=== PATIENT | male | born 1945 | race Caucasian/White ===

== ENCOUNTER → 2020-10-23 17:33 | Outpatient (CLI) | payer MEDICARE, OTHER, SELFPAY ==
--- NOTE | 2020-10-23 17:37 | DI.MRI.S_ITS ---
PROCEDURE: MR HIP LT WO CON INDICATIONS: UNILATERAL PRIMARY OSTEOARTHRITIS, LEFT HIP TECHNIQUE: Noncontrast coronal T1 spin echo and STIR through the bony pelvis. Coronal and axial T2 fast spin echo with fat saturation, sagittal T1 spin echo, and oblique axial T2 fast spin echo with fat saturation through the hip. COMPARISON: None. FINDINGS: Bones and joints: No fracture identified. Sacroiliac joints are unremarkable in signal intensity. There is lower lumbar spondylosis and facet arthropathy. No pathologic hip joint effusion. No evidence of osteonecrosis. Tendons and ligaments: Gluteus minimus appears intact. There is thickening and partial tear of the gluteus medius insertion. Proximal iliotibial band intact. Iliopsoas tendon intact. Hamstring origin demonstrates marked thickening and intrasubstance T2 hyperintensity as well as adjacent edema in keeping with age-indeterminate tendinopathy Mild thickening and amorphous intrasubstance signal change involving the straight head of the rectus femoris, likely chronic. Ligamentum teres appears intact where visualized. Labrum: Labrum demonstrates age-appropriate fraying. No intrasubstance fluid signal intensity. The alpha angle of the femur is within normal limits at less than 55 degrees. There is mild diffuse partial-thickness chondral loss, age appropriate. Soft tissues: Visualized muscles demonstrate normal bulk and internal signal. Quadratus femoris muscle normal. Proximal sciatic neurovascular bundle appears normal adjacent to the hamstring tendons. No free pelvic fluid. Bladder normal. Genitourinary structures and bowel loops appear normal where visualized. IMPRESSION: Hamstring origin tendinopathy and partial tear, technically age unknown. Please correlate clinically Insertional gluteus medius tendinopathy and partial tear. Mild probably chronic tendinopathy involving the straight head of the rectus femoris muscle. Dictated by: Joe Feldman M.D. on 10/26/2020 at 8:39 Approved by: Joe Feldman M.D. on 10/26/2020 at 9:00
== END ==
PROVIDERS: Referring Provider Orthopaedic Surgery; Visit Provider Orthopaedic Surgery
DX: M16.12 Unilateral primary osteoarthritis, left hip (principal); S76.812A Strain of other specified muscles, fascia and tendons at thigh level, left thigh, initial encounter
CPT/HCPCS: 73721

== ENCOUNTER 2021-02-01 16:48 | Emergency (ER) | payer MEDICARE, OTHER, SELFPAY ==
[2021-02-01 16:53] VITALS: BP 155/84; PULSE 80; RESP 16; TEMP 36.7; O2SAT 97; BMI 23.3
--- NOTE | 2021-02-01 17:03 | DI.RAD.S_ITS ---
PROCEDURE: XR CHEST 1V INDICATIONS: chest pain TECHNIQUE: One view of the chest was acquired. COMPARISON: [facility], CR, XR RIBS RIGHT, 01/28/2021, 9:51. FINDINGS: Surgical changes and devices: None. Lungs and pleura: Lungs are clear. No pleural effusions or pneumothorax. Mediastinum: Mediastinal contours appear normal. Heart size is normal. Bones and chest wall: No suspicious bony lesions. Age-appropriate bony degenerative changes are seen. Overlying soft tissues appear unremarkable. IMPRESSION: Portable chest study within normal limits for age. Dictated by: Bharat Bains M.D. on 02/01/2021 at 16:27 Approved by: Bharat Bains M.D. on 02/01/2021 at 16:27
--- NOTE | 2021-02-01 17:36 | ED.ARRPALP ---
HPI - Arrhythmia/Palpitations General Chief Complaint: Arrhythmia/Palpitations Stated Complaint: Afib, 4 Hours Time Seen by Provider: 02/01/21 17:03 History of Present Illness HPI narrative: Patient is a 75-year-old male with history of paroxysmal atrial fibrillation on metoprolol and Eliquis in the. He says with the heat and most recently his dog needing an amputation he has had a few episodes of atrial fibrillation last week. He had 1 2 days ago which he took an extra dose of metoprolol and got out of it he thinks are at least it slowed down however today he felt it again. He took 100 mg of metoprolol tartrate prior to his arrival. However it is 2 years ago. Initially in atrial fibrillation with a rate of 102 however he spontaneously converted to a normal sinus rhythm in with rate 79. He denies any dizziness or lightheadedness. He is followed closely at the [facility]. Related Data Previous Rx's Medication Instructions Recorded metoprolol succinate 25 mg 25 mg PO DAILY #14 tab 02/01/21 tablet,extended release 24 hr Allergies Allergy/AdvReac Type Severity Reaction Status Date / Time Penicillins Allergy Intermediate Hives Verified 02/01/21 17:41 Review of Systems Review of Systems Narrative: GENERAL: Denies chills, fatigue, malaise, fever, sweats, travel HEENT: Denies sinus pain, ear pain, sore throat, difficulty swallowing, neck pain RESPIRATORY: Denies dyspnea, cough, wheezing, hemoptysis, sputum. CARDIOVASCULAR: See HPI GASTROINTESTINAL: Denies nausea, vomiting, abdominal pain, diarrhea, constipation, melena. : Denies dysuria, frequency, incontinence, hematuria, urinary retention, flank pain. MUSCULOSKELETAL: Denies weakness, joint pain, or bony pain SKIN: No rash, no erythema, no pruritus NEUROLOGIC: Denies weakness, dizziness, headache, numbness, change in speech, confusion PSYCHIATRIC: No concerning psychosocial issues. 12 point review of systems is negative except for those stated above and HPI Exam Initial Vital Signs Initial Vital Signs: Vital Signs Temperature 98.1 F 02/01/21 16:53 Pulse Rate 80 02/01/21 16:53 Respiratory Rate 16 02/01/21 16:53 Blood Pressure 155/84 H 02/01/21 16:53 Pulse Oximetry 97 02/01/21 16:53 GENERAL: Alert well-appearing 75-year-old male HEENT: Head atraumatic,EOMI, pupils reactive, face symmetric, moist mucous membranes CARDIOVASCULAR: Regular rate and rhythm without murmurs, rubs or gallops. RESPIRATORY: Breath sounds equal bilaterally, no wheezes rales or rhonchi. ABDOMEN: Soft, nontender. Normoactive bowel sounds all 4 quadrants. No guarding or rebound. EXTREMITIES: Normal range of motion, no clubbing or edema. Neurovascularly intact NEUROLOGICAL: Alert and oriented x4.Normal gait and speech. SKIN: Warm, dry, no laceration, no petechiae, no rashes or lesions. Course Orders Ordered: ED Orders 02/01/21 17:03 XR chest 1V Stat EKG-12 Lead Stat 02/01/21 17:35 BNP [NT-proBNP (BNP-Adult 18+)] Stat Complete Blood Count AUTO DIFF Stat Comprehensive Metabolic Panel Stat Lipase Stat Magnesium Stat PTT [Partial Thromboplastin Time] Stat Prothrombin Time INR Stat Troponin & CK Cardiac Panel Stat Discontinued Medications Diltiazem HCl (Diltiazem 5 Mg/Ml Sdv) 10 mg IV NOW ONE Stop: 02/01/21 17:06 Last Admin: 02/01/21 17:58 Dose: Not Given Documented by: MATTI Vital Signs Vital signs: Vital Signs - 8 hr 02/01/21 16:53 Temperature 98.1 F Pulse Rate 80 Respiratory Rate 16 Blood Pressure 155/84 H Pulse Oximetry 97 MDM - Arrhythmia/Palpitations Lab Data Result diagrams: 02/01/21 17:35 02/01/21 17:35 Labs: Lab Results 02/01/21 02/01/21 02/01/21 Range/Units 17:35 17:35 17:35 WBC 9.7 (4.5-11.0) X10^3/uL RBC 4.60 (4.5-5.9) X10^6/uL Hgb 13.6 (13.5-17.5) g/dL Hct 40.0 L (41-53) % MCV 86.8 (80-100) fL MCH 29.6 (26-34) PG MCHC 34.1 (30-36) % RDW 13.2 (11.6-14.8) % Plt Count 308 (150-400) X10^3/uL Neut % (Auto) 60.0 (50-75) % Lymph % (Auto) 27.2 (25-40) % [place] % (Auto) 9.6 (3-14) % Eos % (Auto) 2.2 (2-4) % Baso % (Auto) 1.0 (0-2) % Neut # (Auto) 5800 (6378-9008) /uL Lymph # (Auto) 2600 (6201-2607) /uL [place] # (Auto) 900 (0-900) /uL Eos # (Auto) 200 (0-450) /uL Baso # (Auto) 100 (0-100) /uL PT 11.7 (10.1-12.7) SECONDS INR 1.0 (0.9-1.3) APTT 33 (26.4-36.2) SECONDS Sodium 141 (137-145) mmol/L Potassium 4.3 (3.4-5.1) mmol/L Chloride 105 (98-107) mmol/L Carbon Dioxide 28 (22-32) mmol/L BUN 13 (9-20) mg/dL Creatinine 0.85 (0.66-1.25) mg/dL Estimated GFR > 60.0 (>60) mL/min BUN/Creatinine Ratio 15.3 (6-22) Glucose 232 H (80-110) mg/dL Calcium 9.7 (8.4-10.2) mg/dL Magnesium 2.2 (1.6-2.3) mg/dL Total Bilirubin 0.4 (0.2-1.3) mg/dL AST 24 (17-59) IU/L ALT 22 (<50) IU/L Alkaline Phosphatase 83 (38-126) U/L Total Creatine Kinase 50 L (55-170) U/L CK-MB (CK-2) TNP CK-MB (CK-2) Rel Index TNP Troponin I < 0.012 (0.01-0.034) ng/mL NT-Pro-B Natriuret Pep 100 (<125) pg/mL Total Protein 7.9 (6.3-8.2) g/dL Albumin 4.4 (3.5-5.0) g/dL Globulin 3.5 (1.7-4.1) g/dL Albumin/Globulin Ratio 1.3 (1.0-2.8) Lipase 131 (23-300) U/L Imaging Data Chest x-ray: Radiologist's Impresson: PROCEDURE: XR CHEST 1V INDICATIONS: chest pain TECHNIQUE: One view of the chest was acquired. COMPARISON: [facility], CR, XR RIBS RIGHT, 01/28/2021, 9:51. FINDINGS: Surgical changes and devices: None. Lungs and pleura: Lungs are clear. No pleural effusions or pneumothorax. Mediastinum: Mediastinal contours appear normal. Heart size is normal. Bones and chest wall: No suspicious bony lesions. Age-appropriate bony degenerative changes are seen. Overlying soft tissues appear unremarkable. IMPRESSION: Portable chest study within normal limits for age. Dictated by: Bharat Bains M.D. on 02/01/2021 at 16:27 Approved by: Bharat Bains M.D. on 02/01/2021 at 16:27 ECG Data Interpretation: EKG 1. Atrial fibrillation rate [address] changes EKG 2. Normal sinus rhythm no ST changes or T-wave inversions MDM Narrative Medical decision making narrative: Patient spontaneously converted he was brought back. He remains in normal sinus rhythm with heart rate in the 70s and blood pressure in the 120s. He has had increased episodes of AFib over the last 1 week. At this time I recommend increasing his metoprolol from 12.5 mg at night to 25 mg at night in following up with the CO. he agrees with this plan. He understands to watch blood pressure and heart rate and return to the emergency department as needed. He is overall feeling significantly better. Discharge Plan Departure Patient Disposition: Home Clinical Impression: Atrial fibrillation Qualifiers: Atrial fibrillation type: paroxysmal Qualified Code(s): I48.0 - Paroxysmal atrial fibrillation Instructions: DI for Atrial Fibrillation Activity Restrictions/Additional Instructions: *You have been diagnosed with atrial fibrillation paroxysmal *What to do: At this time please follow-up with the [facility] and see the pathology lab technician. For now let us increase in the metoprolol to 25 mg at nighttime to see how you do. Please continue to take Eliquis as prescribed *Continue to take medications as directed 25 mg metoprolol succinate at night *Follow up with your primary care provider in 2-3 days *Return to ER if you should have increasing chest pain palpitations dizziness lightheadedness or persistent or more frequent episodes of atrial fibrillation or any new, worsening or concerning symptoms Prescriptions: New metoprolol succinate 25 mg tablet extended release 24 hr 25 mg PO DAILY Qty: 14 RF: 0
[2021-02-01 17:43] LABS: Add Manual Diff / Slide Review NO; Basophils Absolute Auto 100 /uL (0-100); Eosinophils Absolute Auto 200 /uL (0-450); Eosinophils Percent Auto 2.2 % (2-4); Hemoglobin 13.6 g/dL (13.5-17.5); Lymphocytes Absolute Auto 2600 /uL (1100-4500); Lymphocytes Percent Auto 27.2 % (25-40); Mean Corpuscular HGB Conc 34.1 % (30-36); Mean Corpuscular Hemoglobin 29.6 PG (26-34); Mean Corpuscular Volume 86.8 fL (80-100); Monocytes Absolute Auto 900 /uL (0-900); Monocytes Percent Auto 9.6 % (3-14); Neutrophils Absolute Auto 5800 /uL (1500-7000); Platelet Count 308 X10^3/uL (150-400); Red Cell Distribution Width 13.2 % (11.6-14.8); White Blood Cell Count 9.7 X10^3/uL (4.5-11.0)
[2021-02-01 17:48] LABS: Prothrombin Time 11.7 SECONDS (10.1-12.7)
[2021-02-01 17:51] LABS: PTT Partial Thromboplastin Tim 33 SECONDS (26.4-36.2)
[2021-02-01 17:54] LABS: Alanine Aminotransferase 22 IU/L (<50); Albumin 4.4 g/dL (3.5-5.0); Albumin Globulin Ratio 1.3 (1.0-2.8); Alkaline Phosphatase 83 U/L (38-126); Aspartate Aminotransferase 24 IU/L (17-59); BUN Creatinine Ratio 15.3 (6-22); Bilirubin Total 0.4 mg/dL (0.2-1.3); Blood Urea Nitrogen 13 mg/dL (9-20); Calcium 9.7 mg/dL (8.4-10.2); Carbon Dioxide 28 mmol/L (22-32); Chloride 105 mmol/L (98-107); Creatine Kinase 50 U/L (55-170); Estimated Glomerular Filt Rate > 60.0 mL/min (>60); Globulin 3.5 g/dL (1.7-4.1); Glucose 232 mg/dL (80-110); HEMOLYSIS < 15 (0-50); Lipase 131 U/L (23-300); Magnesium 2.2 mg/dL (1.6-2.3); Potassium 4.3 mmol/L (3.4-5.1); Sodium 141 mmol/L (137-145); Total Protein 7.9 g/dL (6.3-8.2)
[2021-02-01 18:07] LABS: NT-proBNP (BNP-Adult 18+) 100 pg/mL (<125); Troponin I < 0.012 ng/mL (0.01-0.034)
[2021-02-01 18:40] VITALS: BP 126/69; PULSE 70; RESP 17; O2SAT 99
== END 2021-02-01 18:41 | disposition home or self-care (01) ==
PROVIDERS: Emergency Provider Emergency Medicine
DX: I48.0 Paroxysmal atrial fibrillation (principal); R07.9 Chest pain, unspecified; Z79.01 Long term (current) use of anticoagulants
CPT/HCPCS: 36415; 71045; 80053; 82550; 83690; 83735; 83880; 84484; 85025; 85610; 85730; 93005; 99282; 99284

== ENCOUNTER 2021-02-11 15:42 | Emergency (ER) | payer MEDICARE, OTHER, SELFPAY ==
[2021-02-11] VITALS (27 sets, daily range): BP systolic 102–175; BP diastolic 57–92; PULSE 68–160; RESP 11–28; TEMP 36.9; O2SAT 89–100; BMI 23.6
--- NOTE | 2021-02-11 15:45 | DI.RAD.S_ITS ---
PROCEDURE: XR CHEST 1V INDICATIONS: chest pain TECHNIQUE: One view of the chest was acquired. COMPARISON: [facility], CR, XR CHEST 1V, 02/01/2021, 17:12. FINDINGS: Surgical changes and devices: None. Lungs and pleura: Lungs are clear. No pleural effusions or pneumothorax. Mediastinum: Mediastinal contours appear normal. Heart size is normal. Bones and chest wall: No suspicious bony lesions. Overlying soft tissues appear unremarkable. IMPRESSION: No acute pulmonary process. Dictated by: Noemi Wisdom M.D. on 02/11/2021 at 16:46 Approved by: Noemi Wisdom M.D. on 02/11/2021 at 16:46
--- NOTE | 2021-02-11 15:56 | ED_ITS ---
HPI - Arrhythmia/Palpitations General Chief Complaint: Arrhythmia/Palpitations Stated Complaint: states in pretty bad A Fib Time Seen by Provider: 02/11/21 15:48 Source: patient Mode of arrival: Ambulatory Limitations: no limitations History of Present Illness HPI narrative: Patient is a 75-year-old male. History of atrial fibrillation. Is on Eliquis. Has taken 2 times a day for least the past 4 weeks if not lo nger. Is also on metoprolol in the evening. Was seen here in the emergency department a couple days ago for AFib with RVR. He converted on his own prior to administration of any medications. He has had AFib in the past and has been to the emergency department however has always either converted on his own or with Cardizem and has never been cardioverted before. He states that his symptoms that he presents with today started this afternoon. He has had quite a bit of stress over the past 24 hours. He states he is having some heaviness in his chest. He did take metoprolol approximately 1 hour prior to arrival in the emergency department Related Data Previous Rx's Medication Instructions Recorded metoprolol succinate 25 mg 25 mg PO DAILY #14 tab 02/01/21 tablet,extended release 24 hr Allergies Allergy/AdvReac Type Severity Reaction Status Date / Time Penicillins Allergy Intermediate Hives Verified 02/11/21 15:51 Review of Systems Constitutional Constitutional: Denies fever(s) and Denies headache(s) ENT Ears, Nose, Mouth, and Throat: Denies headache(s) Cardiovascular Cardiovascular: Reports as per HPI, Reports rapid heart rate, Reports irregular heart rhythm and Denies dyspnea Respiratory Respiratory: Denies dyspnea Gastrointestinal Gastrointestinal: Reports system reviewed and no additional complaints, except as documented Musculoskeletal Musculoskeletal: Reports system reviewed and no additional complaints, except as documented Integumentary/Breasts Skin/Breast: Reports system reviewed and no additional complaints, except as documented Neurologic Neurologic: Denies headache(s) Psychiatric Psychiatric: Reports system reviewed and no additional complaints, except as documented Hematologic/Lymphatic On Anticoagulants: Yes Allergic/Immunologic Allergic/Immunologic: Reports system reviewed and no additional complaints, except as documented Patient History Medical History Atrial fibrillation Social History Smoking Status: Never smoker Smoking Status: Never smoker alcohol intake frequency: holidays/special occasions only Substance Use Type: marijuana Exam Initial Vital Signs Initial Vital Signs: Vital Signs Temperature 98.4 F 02/11/21 15:51 Pulse Rate 160 H 02/11/21 15:51 Respiratory Rate 22 02/11/21 15:51 Blood Pressure 172/79 H 02/11/21 15:51 Pulse Oximetry 99 02/11/21 15:51 Const General: cooperative, healthy appearing and comfortable HENMT Head: normal to inspection and normocephalic Resp Effort & Inspection: normal respiratory effort Auscultation: clear to auscultation bilaterally Cardio Rate: tachycardic Rhythm: abnormal rhythm GI Inspection: normal to inspection Skin General: no rashes or lesions noted Neuro General: patient alert, patient awake, patient oriented x3 and moves all extremities Extrem General: capillary refill normal Psych Appearance: grossly normal and well kempt Procedures Cardioversion Consent Signed: Yes Indication: Atrial fibrillation Stability: Stable Number of attempts (shocks): 3 Joules used: 120 Cardiac rhythm post-cardioversion: AFib Additional Comments: Attempted 3 different shocks 1st on at 120 joules, 2nd 1 at 150 joules, 3rd 1 at 200 joules Procedural Sedation Consent signed: Yes Time out performed: Yes Indication: cardioversion Presedation Evaluation: See HPI ASA Class: II Mallampati Airway Classification: Class II Preparation: clinical research monitor applied, pulse oximeter, capnometry used, supplemental O2 applied, suction/airway equipment at bedside and IV secured Fentanyl: IV Fentanyl dose (mcg): 12 Ketamine dose (mg): 100 Intraservice time/total sedation time (min): 20 ED Sedation Level: Moderate (Concious) Patient Tolerated Procedure: Well and No complications Complications: none Course Orders Ordered: ED Orders 02/11/21 15:45 XR chest 1V Stat Comprehensive Metabolic Panel Stat Lipase Stat Magnesium Stat Troponin & CK Cardiac Panel Stat EKG-12 Lead Stat 02/11/21 16:18 Complete Blood Count AUTO DIFF Stat 02/11/21 16:20 EKG-12 Lead Stat 02/11/21 16:39 RT Consult Eval and Treat Now Sodium Chloride (Normal Saline 0.9%) 1,000 mls @ 125 mls/hr IV CONT SAIMA Last Admin: 02/11/21 17:00 Dose: 125 mls/hr Documented by: Discontinued Medications Diltiazem HCl (Diltiazem 5 Mg/Ml Sdv) 10 mg IV NOW ONE Stop: 02/11/21 15:51 Last Admin: 02/11/21 16:11 Dose: 10 mg Documented by: VILMA Fentanyl (Fentanyl 100 Mcg/2 Ml Inj) 12.5 mcg IV NOW ONE Stop: 02/11/21 16:38 Last Admin: 02/11/21 17:16 Dose: 12.5 mcg Documented by: Propofol (Propofol 200 Mg/20 Ml Vial) 100 mg IV NOW ONE Stop: 02/11/21 16:38 Last Admin: 02/11/21 17:18 Dose: 70 mg Documented by: Vital Signs Vital signs: Vital Signs - 8 hr 02/11/21 15:51 02/11/21 15:56 02/11/21 16:04 Temperature 98.4 F Pulse Rate 160 H 150 H 157 H Respiratory Rate 22 15 14 Blood Pressure 172/79 H Pulse Oximetry 99 98 89 L 02/11/21 16:10 02/11/21 16:11 02/11/21 16:18 Temperature Pulse Rate 156 H 156 H 92 H Respiratory Rate 18 14 Blood Pressure 143/87 H 145/67 H 141/63 H Pulse Oximetry 98 96 02/11/21 16:30 02/11/21 16:45 02/11/21 17:00 Temperature Pulse Rate 92 H 81 122 H Respiratory Rate 22 16 20 Blood Pressure 142/71 H 102/57 L 175/92 H Pulse Oximetry 98 97 97 02/11/21 17:05 02/11/21 17:10 02/11/21 17:15 Temperature Pulse Rate 108 H 110 H 136 H Respiratory Rate 16 13 18 Blood Pressure 149/88 H 147/74 H 160/74 H Pulse Oximetry 97 99 97 02/11/21 17:20 02/11/21 17:25 02/11/21 17:30 Temperature Pulse Rate 80 75 68 Respiratory Rate 20 17 20 Blood Pressure 116/62 136/71 136/65 Pulse Oximetry 99 97 98 02/11/21 17:35 02/11/21 17:40 02/11/21 17:41 Temperature Pulse Rate 76 75 74 Respiratory Rate 20 20 18 Blood Pressure 136/66 142/77 H Pulse Oximetry 98 99 100 02/11/21 17:45 02/11/21 17:50 02/11/21 17:55 Temperature Pulse Rate 74 78 73 Respiratory Rate 28 H 19 15 Blood Pressure 126/73 141/65 H 130/77 Pulse Oximetry 100 99 98 02/11/21 18:00 02/11/21 18:05 02/11/21 18:06 Temperature Pulse Rate 75 75 77 Respiratory Rate 18 19 20 Blood Pressure 119/71 146/71 H Pulse Oximetry 97 97 97 02/11/21 18:10 02/11/21 18:11 02/11/21 18:15 Temperature Pulse Rate 74 75 75 Respiratory Rate 17 11 L 24 Blood Pressure 137/66 Pulse Oximetry 98 98 97 MDM - Arrhythmia/Palpitations Medical Records Attestation: I reviewed the patient's medical records. Lab Data Attestation: I reviewed the patient's lab results. Result diagrams: 02/11/21 16:18 02/11/21 16:18 Labs: Lab Results 02/11/21 02/11/21 Range/Units 16:18 16:18 WBC 11.4 H (4.5-11.0) X10^3/uL RBC 5.07 (4.5-5.9) X10^6/uL Hgb 14.6 (13.5-17.5) g/dL Hct 43.8 (41-53) % MCV 86.4 (80-100) fL MCH 28.8 (26-34) PG MCHC 33.3 (30-36) % RDW 13.0 (11.6-14.8) % Plt Count 378 (150-400) X10^3/uL Neut % (Auto) 64.3 (50-75) % Lymph % (Auto) 26.9 (25-40) % [place] % (Auto) 7.0 (3-14) % Eos % (Auto) 1.2 L (2-4) % Baso % (Auto) 0.6 (0-2) % Neut # (Auto) 7300 H (1661-5325) /uL Lymph # (Auto) 3100 (3854-5099) /uL [place] # (Auto) 800 (0-900) /uL Eos # (Auto) 100 (0-450) /uL Baso # (Auto) 100 (0-100) /uL Sodium 142 (137-145) mmol/L Potassium 4.3 (3.4-5.1) mmol/L Chloride 104 (98-107) mmol/L Carbon Dioxide 27 (22-32) mmol/L BUN 11 (9-20) mg/dL Creatinine 0.79 (0.66-1.25) mg/dL Estimated GFR > 60.0 (>60) mL/min BUN/Creatinine Ratio 13.9 (6-22) Glucose 238 H (80-110) mg/dL Calcium 10.0 (8.4-10.2) mg/dL Magnesium 2.1 (1.6-2.3) mg/dL Total Bilirubin 0.5 (0.2-1.3) mg/dL AST 25 (17-59) IU/L ALT 20 (<50) IU/L Alkaline Phosphatase 121 (38-126) U/L Total Creatine Kinase 79 (55-170) U/L CK-MB (CK-2) TNP CK-MB (CK-2) Rel Index TNP Troponin I < 0.012 (0.01-0.034) ng/mL Total Protein 8.6 H (6.3-8.2) g/dL Albumin 4.7 (3.5-5.0) g/dL Globulin 3.9 (1.7-4.1) g/dL Albumin/Globulin Ratio 1.2 (1.0-2.8) Lipase 203 D (23-300) U/L Imaging Data Chest x-ray: Radiologist's Impresson: [address] [id number] ReportSigned Patient: Guanaco Nelson PMR#: [id number]: 8Acct:[id number]/Sex: 75 / MDate of Service: 02/11/21Loc: EDAccession Number: [id number] Procedure: XR chest 1V Ordering Provider: Brent Mclaughlin D.O. PROCEDURE: XR CHEST 1V INDICATIONS: chest pain TECHNIQUE: One view of the chest was acquired. COMPARISON: [facility], [place], XR CHEST 1V, 02/01/2021, 17:12. FINDINGS: Surgical changes and devices: None. Lungs and pleura: Lungs are clear. No pleural effusions or pneumothorax. Mediastinum: Mediastinal contours appear normal. Heart size is normal. Bones and chest wall: No suspicious bony lesions. Overlying soft tissues appear unremarkable. IMPRESSION: No acute pulmonary process. Dictated by: Noemi Wisdom M.D. on 02/11/2021 at 16:46 Approved by: Noemi Wisdom M.D. on 02/11/2021 at 16:46 ECG Data Attestation: I personally reviewed and interpreted this ECG as follows: Interpretation: Atrial fibrillation Ventricular rate 151 Normal QRS Normal QTC Nonspecific ST T wave changes Post Cardizem EKG atrial flutter Ventricular rate 90 to Normal QRS Normal QTC No ST T wave changes MDM Narrative Medical decision making narrative: Patient has known AFib. Has been anticoag ulated with Eliquis 2 times a day for longer than 4 weeks. He took metoprolol prior to arrival. He was given 10 mg of Cardizem and this did improve his rate however he was still in atrial fibrillation. Talk with him about options to include cardioversion verses continue with rate control at home. After the discussion he opted for the cardioversion. He was sedated this described above. Attempted 3 shocks. We were briefly successful at converting him to sinus rhythm after each of the shocks however he reverted back to AFib/flutter. He continued to be rate controlled. Was not hypotensive. Plan will be is to continue him on his anticoagulation. He has metoprolol at home and has a way of checking his pulse at home. If his heart rate is less than 100 he will continue with the 25 mg of metoprolol at night. If he needs to he will increase this to 25 mg b.i.d.. He is well aware of metoprolol and has instructions from prior motorcycle deliverer and how to dose this medication. He was given follow-up information for Cardiology in this area. He is given return precautions and follow-up instructions. He expressed understanding and agreement. Discharge Plan Departure Patient Disposition: Home Clinical Impression: Atrial fibrillation Instructions: DI for Atrial Fibrillation Activity Restrictions/Additional Instructions: Recommend that you continue to take all of your medications as directed to include your metoprolol and the Eliquis. I recommend you contact the motorcycle deliverer at the number provided below for a follow-up. Please return to the emergency department for any new or worsening symptoms Prescriptions: No Action metoprolol succinate 25 mg tablet extended release 24 hr 25 mg PO DAILY Qty: 14 RF: 0 Referrals: Hugo Menchaca MD [Physician] -
[2021-02-11] MEDS: dilTIAZem 5 MG/ML SDV 10 MG IV (16:11)
[2021-02-11 16:26] LABS: Add Manual Diff / Slide Review NO; Basophils Absolute Auto 100 /uL (0-100); Basophils Percent Auto 0.6 % (0-2); Eosinophils Absolute Auto 100 /uL (0-450); Eosinophils Percent Auto 1.2 % (2-4); Hematocrit 43.8 % (41-53); Hemoglobin 14.6 g/dL (13.5-17.5); Lymphocytes Absolute Auto 3100 /uL (1100-4500); Lymphocytes Percent Auto 26.9 % (25-40); Mean Corpuscular HGB Conc 33.3 % (30-36); Mean Corpuscular Hemoglobin 28.8 PG (26-34); Mean Corpuscular Volume 86.4 fL (80-100); Monocytes Absolute Auto 800 /uL (0-900); Neutrophils Absolute Auto 7300 /uL (1500-7000); Neutrophils Percent Auto 64.3 % (50-75); Platelet Count 378 X10^3/uL (150-400); Red Blood Cell Count 5.07 X10^6/uL (4.5-5.9); White Blood Cell Count 11.4 X10^3/uL (4.5-11.0)
[2021-02-11 16:47] LABS: Alanine Aminotransferase 20 IU/L (<50); Albumin 4.7 g/dL (3.5-5.0); Albumin Globulin Ratio 1.2 (1.0-2.8); Alkaline Phosphatase 121 U/L (38-126); Aspartate Aminotransferase 25 IU/L (17-59); BUN Creatinine Ratio 13.9 (6-22); Bilirubin Total 0.5 mg/dL (0.2-1.3); Blood Urea Nitrogen 11 mg/dL (9-20); Carbon Dioxide 27 mmol/L (22-32); Chloride 104 mmol/L (98-107); Creatine Kinase 79 U/L (55-170); Estimated Glomerular Filt Rate > 60.0 mL/min (>60); Globulin 3.9 g/dL (1.7-4.1); Glucose 238 mg/dL (80-110); HEMOLYSIS < 15 (0-50); Lipase 203 U/L (23-300); Magnesium 2.1 mg/dL (1.6-2.3); Potassium 4.3 mmol/L (3.4-5.1); Sodium 142 mmol/L (137-145); Total Protein 8.6 g/dL (6.3-8.2)
[2021-02-11 16:59] LABS: Troponin I < 0.012 ng/mL (0.01-0.034)
[2021-02-11] MEDS: SODIUM CHLORIDE 0.9% 1,000 ML 125 ML IV (17:00)
[2021-02-11] MEDS: fentaNYL 100 MCG/2 ML INJ 12.5 MCG IV (17:16)
[2021-02-11] MEDS: propofoL 200 MG/20 ML VIAL 100 MG IV (17:18)
--- NOTE | 2021-02-11 17:43 | RT ---
Called to Bedside for Cardioversion/PRS. Bag mask unit at [facility] with suction on and functional. Etco2 on and pt altaf well with no distress noted. Pt alert post procedure and released by Rn
== END 2021-02-11 18:50 | disposition home or self-care (01) ==
PROVIDERS: Emergency Provider Emergency Medicine
DX: I48.91 Unspecified atrial fibrillation (principal); Z79.01 Long term (current) use of anticoagulants; R00.2 Palpitations
CPT/HCPCS: 36415; 71045; 80053; 82550; 83690; 83735; 84484; 85025; 92960; 93005; 93010; 96361; 96374; 99152; 99285; 99291; J2704; J3010

== ENCOUNTER → 2021-08-17 09:26 | Outpatient (CLI) | payer MEDICARE, OTHER, SELFPAY ==
[2021-08-17 10:29] LABS: Add Manual Diff / Slide Review NO; Basophils Absolute Auto 100 /uL (0-100); Basophils Percent Auto 0.9 % (0-2); Eosinophils Absolute Auto 100 /uL (0-450); Eosinophils Percent Auto 1.8 % (2-4); Hematocrit 41.3 % (41-53); Hemoglobin 14.2 g/dL (13.5-17.5); Lymphocytes Absolute Auto 1800 /uL (1100-4500); Lymphocytes Percent Auto 22.1 % (25-40); Mean Corpuscular HGB Conc 34.3 % (30-36); Mean Corpuscular Hemoglobin 30.2 PG (26-34); Mean Corpuscular Volume 88.2 fL (80-100); Monocytes Absolute Auto 600 /uL (0-900); Monocytes Percent Auto 7.9 % (3-14); Neutrophils Absolute Auto 5400 /uL (1500-7000); Neutrophils Percent Auto 67.3 % (50-75); Platelet Count 273 X10^3/uL (150-400); Red Blood Cell Count 4.69 X10^6/uL (4.5-5.9)
[2021-08-17 10:47] LABS: Hemoglobin A1C% w Est Avg Glu 6.7 % (4.0-6.0)
[2021-08-17 11:20] LABS: Alanine Aminotransferase 18 IU/L (<50); Albumin 4.2 g/dL (3.5-5.0); Albumin Globulin Ratio 1.3 (1.0-2.8); Alkaline Phosphatase 74 U/L (38-126); Aspartate Aminotransferase 24 IU/L (17-59); BUN Creatinine Ratio 11.6 (6-22); Bilirubin Total 0.5 mg/dL (0.2-1.3); Blood Urea Nitrogen 11 mg/dL (9-20); Calcium 9.2 mg/dL (8.4-10.2); Carbon Dioxide 31 mmol/L (22-32); Chloride 100 mmol/L (98-107); Cholesterol 278 mg/dL (140-199); Estimated Glomerular Filt Rate > 60.0 mL/min (>60); Globulin 3.2 g/dL (1.7-4.1); Glucose 205 mg/dL (80-110); HDL Cholesterol 39 mg/dL (40-60); HEMOLYSIS < 15 (0-50); LDL Cholesterol Calculated 185 mg/dL (<100); Potassium 4.3 mmol/L (3.4-5.1); Sodium 139 mmol/L (137-145); Total Protein 7.4 g/dL (6.3-8.2); Triglycerides 270 mg/dL (35-150)
[2021-08-17 11:45] LABS: Prostate Specific Antigen Scrn 1.63 ng/mL (0.1-4.0)
== END ==
PROVIDERS: PCP Family Medicine; Referring Provider Family Medicine; Visit Provider Family Medicine
DX: E11.9 Type 2 diabetes mellitus without complications (principal); E78.5 Hyperlipidemia, unspecified; Z12.5 Encounter for screening for malignant neoplasm of prostate; R39.9 Unspecified symptoms and signs involving the genitourinary system
CPT/HCPCS: 36415; 80053; 80061; 83036; 85025; G0103

== ENCOUNTER → 2022-03-08 09:45 | Outpatient (CLI) | payer MEDICARE, OTHER, SELFPAY | PROVIDERS: PCP Family Medicine; Visit Provider Nurse Practitioner Critical Care Medicine | DX: R05.9 Cough, unspecified (principal) | CPT/HCPCS: 87070; 87077; 87147; 87186; 87205 ==

== ENCOUNTER → 2022-04-13 08:21 | Outpatient (CLI) | payer MEDICARE, OTHER, SELFPAY ==
[2022-04-13 10:37] LABS: Alanine Aminotransferase 20 IU/L (<50); Albumin 4.2 g/dL (3.5-5.0); Albumin Globulin Ratio 1.2 (1.0-2.8); Alkaline Phosphatase 60 U/L (38-126); Aspartate Aminotransferase 21 IU/L (17-59); BUN Creatinine Ratio 16.9 (6-22); Bilirubin Total 0.5 mg/dL (0.2-1.3); Blood Urea Nitrogen 13 mg/dL (9-20); Calcium 9.1 mg/dL (8.4-10.2); Carbon Dioxide 29 mmol/L (22-32); Chloride 99 mmol/L (98-107); Estimated Glomerular Filt Rate > 60 mL/min (>60); Globulin 3.5 g/dL (1.7-4.1); Glucose 249 mg/dL (80-110); HEMOLYSIS < 15 (0-50); Potassium 4.2 mmol/L (3.4-5.1); Sodium 140 mmol/L (137-145); Total Protein 7.7 g/dL (6.3-8.2)
== END ==
PROVIDERS: PCP Family Medicine; Referring Provider Internal Medicine Clinical Cardiac Electrophysiology; Visit Provider Internal Medicine Clinical Cardiac Electrophysiology
DX: I48.0 Paroxysmal atrial fibrillation (principal); Z79.899 Other long term (current) drug therapy
CPT/HCPCS: 36415; 80053

== ENCOUNTER → 2022-05-17 10:33 | Outpatient (CLI) | payer MEDICARE, OTHER, SELFPAY | PROVIDERS: Family Provider Family Medicine; PCP Family Medicine; Referring Provider Family Medicine; Visit Provider Family Medicine ==

== ENCOUNTER → 2022-07-26 09:09 | Outpatient (CLI) | payer MEDICARE, OTHER, SELFPAY ==
--- NOTE | 2022-07-26 | DI.MRI.S_ITS ---
PROCEDURE: MR HEAD/BRAIN WO/W CON INDICATIONS: COMPRESSION OF TRIGEMINAL NERVE TECHNIQUE: Noncontrast sagittal T1 spin echo, axial T2 fast spin echo, axial FLAIR, axial gradient echo, axial diffusion and ADC through the brain. Axial/sagittal/coronal 3-D CISS, thin-slice axial T1 spin echo with fat saturation through the skull base. After the administration of contrast, axial and coronal thin-slice T1 spin echo with fat saturation through the skull base, axial and coronal and sagittal T1 spin echo with fat saturation through the brain. COMPARISON: None. FINDINGS: Image quality: Excellent. Trigeminal nerves: In this patient with this given history, scrutiny is given to the trigeminal nerves. The trigeminal nerves demonstrate a normal appearance, without masses or abnormal enhancement seen along their courses, including within the Meckel's caves. CSF spaces: Ventricles are normal in size and shape. No extra-axial fluid collections. Basal cisterns are patent. Brain: No intracranial bleeds or mass effects. No abnormal intracranial enhancement. Diffusion weighted images show no acute ischemic insults. Brandt-white matter interface is intact. Brainstem is normal. Normal intravascular flow voids are present. Note is made of age-appropriate brain parenchymal volume loss and chronic small vessel ischemic changes. Skull and face: Calvarial marrow signal is normal. Orbits appear normal. Note is made of bilateral lens replacements. Sinuses: Sinuses and mastoids appear clear. IMPRESSION: Unremarkable study for age, without a trigeminal nerve abnormality identified. Dictated by: Bharat Bains M.D. on 07/26/2022 at 11:35 Approved by: Bharat Bains M.D. on 07/26/2022 at 11:36
== END ==
PROVIDERS: Family Provider Family Medicine; PCP Family Medicine; Referring Provider Dentist; Visit Provider Dentist
DX: G50.8 Other disorders of trigeminal nerve (principal)
CPT/HCPCS: 70553; A9579

== ENCOUNTER 2024-09-02 08:50 | Emergency (ER) | payer MEDICARE, OTHER, SELFPAY ==
[2024-09-02] VITALS (13 sets, daily range): BP systolic 103–142; BP diastolic 56–84; PULSE 72–134; RESP 13–27; TEMP 36.9; O2SAT 94–99; BMI 21.9
--- NOTE | 2024-09-02 08:53 | DI.RAD.S_ITS ---
PROCEDURE: XR CHEST 1V INDICATIONS: chest pain TECHNIQUE: One view of the chest was acquired. COMPARISON: [facility], CR, XR CHEST 1V, 02/11/2021, 16:22. [facility], CR, XR CHEST 1V, 02/01/2021, 17:12. FINDINGS: Surgical changes and devices: None. Lungs and pleura: Lungs are clear. No pleural effusions or pneumothorax. Mediastinum: Mediastinal contours appear normal. Heart size is normal. Bones and chest wall: No suspicious bony lesions. Overlying soft tissues appear unremarkable. IMPRESSION: No acute cardiopulmonary abnormality is seen. Dictated by: Esteban Hedrick M.D. on 09/02/2024 at 9:10 Approved by: Esteban Hedrick M.D. on 09/02/2024 at 9:11
--- NOTE | 2024-09-02 08:58 | EKG_ITS ---
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
[2024-09-02] MEDS: METOPROLOL TARTRATE 5 MG/5 ML INJ IV (09:14)
[2024-09-02 09:16] LABS: Add Manual Diff / Slide Review NO; Basophils Absolute Auto 0 /uL (0-100); Basophils Percent Auto 0.3 % (0-2); Eosinophils Absolute Auto 0 /uL (0-450); Eosinophils Percent Auto 0.1 % (2-4); Hematocrit 48.9 % (41-53); Hemoglobin 16.3 g/dL (13.5-17.5); Lymphocytes Absolute Auto 600 /uL (1100-4500); Lymphocytes Percent Auto 5.1 % (25-40); Mean Corpuscular HGB Conc 33.2 % (30-36); Mean Corpuscular Hemoglobin 29.8 PG (26-34); Mean Corpuscular Volume 89.8 fL (80-100); Monocytes Absolute Auto 500 /uL (0-900); Neutrophils Absolute Auto 10500 /uL (1500-7000); Neutrophils Percent Auto 90.5 % (50-75); Platelet Count 251 X10^3/uL (150-400); Red Blood Cell Count 5.45 X10^6/uL (4.5-5.9); Red Cell Distribution Width 13.4 % (11.6-14.8); White Blood Cell Count 11.6 X10^3/uL (4.5-11.0)
[2024-09-02 09:17] LABS: INR 1.3 (0.9-1.3); Prothrombin Time 14.4 SECONDS (9.4-12.5)
[2024-09-02 09:20] LABS: PTT Partial Thromboplastin Tim 37 SECONDS (25.1-36.5)
[2024-09-02 09:22] LABS: Alanine Aminotransferase 25 IU/L (<50); Albumin 4.7 g/dL (3.5-5.0); Albumin Globulin Ratio 1.3 (1.0-2.8); Alkaline Phosphatase 51 U/L (38-126); Aspartate Aminotransferase 33 IU/L (17-59); BUN Creatinine Ratio 19.1 (6-22); Bilirubin Total 0.9 mg/dL (0.2-1.3); Blood Urea Nitrogen 17 mg/dL (9-20); Calcium 8.8 mg/dL (8.4-10.2); Carbon Dioxide 21 mmol/L (22-32); Chloride 105 mmol/L (98-107); Creatine Kinase 71 U/L (55-170); Estimated Glomerular Filt Rate > 60 mL/min (>60); Globulin 3.7 g/dL (1.7-4.1); Glucose 158 mg/dL (80-110); Lipase 47 U/L (23-300); Magnesium 2.1 mg/dL (1.6-2.3); Potassium 4.1 mmol/L (3.4-5.1); Sodium 140 mmol/L (137-145); Total Protein 8.4 g/dL (6.3-8.2)
--- NOTE | 2024-09-02 09:26 | EKG_ITS ---
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
[2024-09-02 09:32] LABS: HEMOLYSIS 38 (0-50); NT-proBNP (BNP-Adult 18+) 1560 pg/mL (<450)
[2024-09-02 09:33] LABS: Troponin I 0.023 ng/mL (0.01-0.034)
--- NOTE | 2024-09-02 09:41 | ED_ITS ---
HPI - Chest Pain General Chief Complaint: Chest Pain Stated Complaint: in a-fib, chest pains and dizzy Time Seen by Provider: 09/02/24 09:06 Source: patient and family Mode of arrival: Ambulatory Limitations: no limitations History of Present Illness HPI narrative: 79-year-old male history of atrial fibrillation, memory, diabetes type 2, dyslipidemia Xarelto, flecainide and metoprolol. Patient presents with complaint of chest pain there watch notify them that they were in atrial fibrillation and they are tachycardic upon arrival. Patient states last night around 7:00 a.m. in the evening to about 3:00 a.m. in the morning had nausea vomiting some abdominal discomfort and episode of diarrhea. States this all stopped about 3:00 a.m. this morning he has had some persistent nausea but otherwise improved. Earlier this morning developed some chest discomfort and tightness which he states is improved. He denies any fevers or chills. Notes a little bit of ear pain particularly at the tragus adjusted front of the ear been for 5 days has not been improving. Patient states subtle little bit of dizziness in irritation to that area. He does note he is some clicking and movement with jaw but that does not make it worse. Patient notes little bit of shortness of breath while he was having the chest discomfort that is also improved. Had some abdominal pain last night but also resolved. Denies any black or bloody stools. No dysuria urgency or frequency. Took his regular medications of the apixaban, flecainide metoprolol at 6:00 p.m. states he did not start throwing up for about an hour after that. Does also take medications for diabetes, and injectable for cholesterol, sertraline and Reclast. Has not had any prior surgeries no cardiac ablation. Had 1 attempted cardioversion that was unsuccessful. Patient follows with Cardiology at [facility]. Related Data Home Medications Medication Instructions Recorded Confirmed Fiber PO 04/27/21 02/02/24 Probiotics PO 04/27/21 02/02/24 apixaban 5 mg tablet (Eliquis) 5 mg PO BID 04/27/21 02/02/24 flecainide 50 mg tablet 50 mg PO Q12H 04/27/21 02/02/24 Vitamin D3 1,000 units PO 06/08/22 02/02/24 empagliflozin 10 mg tablet 10 mg PO DAILY 02/02/24 02/02/24 (Jardiance) gabapentin 300 mg capsule 300 mg PO DAILY 02/02/24 02/02/24 sertraline 50 mg tablet 50 mg PO DAILY 02/02/24 02/02/24 testosterone 5mg gel topical 02/02/24 02/02/24 Previous Rx's Medication Instructions Recorded metoprolol succinate 25 mg 25 mg PO DAILY #14 tabs 02/01/21 tablet,extended release 24 hr alirocumab 75 mg/mL subcutaneous 75 mg SUBCUT Q14D #2 mL 06/08/22 pen injector sulfamethoxazole 800 1 tab PO BID #10 tabs 09/02/24 mg-trimethoprim 160 mg tablet (Bactrim DS) Allergies Allergy/AdvReac Type Severity Reaction Status Date / Time Penicillins Allergy Intermediate Hives Verified 02/02/24 09:05 metformin AdvReac Severe Extreme Verified 02/02/24 09:05 nausea Hycjqcl-ADP-IoM Reductase AdvReac Severe Memory Verified 02/02/24 09:05 Inhibitor loss, mood [Hxxehdu-Kdj-Fcm Reductase changes Inhibitor] Review of Systems Review of Systems ROS Unobtainable: All systems reviewed & are unremarkable except as noted in HPI and below Patient History Medical History Alteration in cognition Memory loss due to medical condition Lower urinary tract symptoms (LUTS) Hyperlipidemia Hx of concussion Arthritis Dyslexia Vision disorder Osteoarthritis Osteoporosis Osteopenia Foot pain Chicken pox Type 1 macular telangiectasis Tinnitus Hearing loss (~2019) Glaucoma (~2018) Low testosterone (~2007) Atrial fibrillation Surgical History Anesthesia History of vasectomy (~1989) History of repair of rotator cuff (~2004) History of hand surgery (~2004) Family History Father Diabetes mellitus History of heart disease Hyperlipidemia Hypertension Mental health problem Stroke Mother Mental health problem COPD (chronic obstructive pulmonary disease) History of emphysema Grandfather GI bleeding Grandfather Brain tumor Social History Smoking Status: Former smoker Smoking Status: Former smoker alcohol intake frequency: holidays/special occasions only Exam Narrative Exam Narrative: GEN: well nourished, well appearing male, alert and oriented x 3, patient appears to be in mild distress. HEENT: Atraumatic, pupils are equal round reactive to light, extraocular movements are intact, nares are clear, TMs are clear with no fluid, patient has some slight erythema of the right tragus of the ear and a little bit the skin overlying, there was no fluid collection or induration, the canal itself shows minimal to no erythema. Patient is slightly tender over the tragus and anterior ear does not have any tenderness with the evaluation of the inner ear. Does have click with jaw movement but no increased pain. There is no conjunctival pallor. Throat is clear without any exudates, erythema, tonsillar enlargement or uvular deviation HEART: Irregularly irregular but rate and proximally the 70s to 90s without murmur, clicks, rubs. No JVD. No edema bilateral lower extremities. LUNGS:Lungs clear to auscultation, no wheezes, rales, crackles, chest moves symmetrically ABD:bowel sounds normal, non distended. Soft, non-tender, no guarding, rebound, rigidity, no masses noted, no hepatosplenomegaly :No CVA tenderness. MSCL: Non-tender, no muscle atrophy, muscles strength 5/5 upper and lower extremities, full range of motion, normal gait NEURO:CN 2-12 intact, sensation normal. Initial Vital Signs Initial Vital Signs: Vital Signs Pulse Rate 134 H 09/02/24 08:58 Respiratory Rate 20 09/02/24 08:58 Pulse Oximetry 99 09/02/24 08:58 Course Orders Ordered: ED Orders 09/02/24 10:58 EKG-12 Lead Stat 09/02/24 11:23 Trop I [Troponin I] Stat Discontinued Medications Aspirin (Aspirin 81 Mg Chew Tab) 324 mg PO NOW ONE Stop: 09/02/24 08:54 Last Admin: 09/02/24 09:19 Dose: Not Given Documented By: RB Sodium Chloride (Normal Saline 0.9%) 1,000 mls @ 1,000 mls/hr IV BOLUS ONE Stop: 09/02/24 11:42 Last Infusion: 09/02/24 11:52 Dose: Infused Documented By: Admin: 09/02/24 10:50 Dose: 1,000 mls/hr Documented By: RB Metoprolol Tartrate (Metoprolol Tartrate 5 Mg/5 Ml Inj) 5 mg IV NOW ONE Stop: 09/02/24 09:07 Last Admin: 09/02/24 09:14 Dose: 5 mg Documented By: RB Ondansetron HCl (Ondansetron 4 Mg/2 Ml Inj) 4 mg IV NOW ONE Stop: 09/02/24 10:44 Last Admin: 09/02/24 10:50 Dose: 4 mg Documented By: RB Vital Signs Vital signs: Vital Signs - 8 hr 09/02/24 11:00 09/02/24 11:00 09/02/24 11:30 Pulse Rate 72 90 Respiratory Rate 27 H 13 Blood Pressure 113/59 L Pulse Oximetry 97 97 09/02/24 11:31 09/02/24 11:31 09/02/24 12:00 Pulse Rate 91 H 99 H Respiratory Rate 17 25 H Blood Pressure 142/63 H Pulse Oximetry 97 95 09/02/24 12:00 09/02/24 12:28 09/02/24 12:28 Pulse Rate 121 H Respiratory Rate 15 Blood Pressure 127/61 103/60 Pulse Oximetry 94 09/02/24 12:30 09/02/24 12:39 Pulse Rate 94 H Respiratory Rate Blood Pressure Pulse Oximetry 99 MDM - Chest Pain Lab Data 09/02/24 09:00 09/02/24 09:00 Labs: Lab Results 09/02/24 09/02/24 Range/Units 09:00 11:23 WBC 11.6 H (4.5-11.0) X10^3/uL RBC 5.45 (4.5-5.9) X10^6/uL Hgb 16.3 (13.5-17.5) g/dL Hct 48.9 (41-53) % MCV 89.8 (80-100) fL MCH 29.8 (26-34) PG MCHC 33.2 (30-36) % RDW 13.4 (11.6-14.8) % Plt Count 251 (150-400) X10^3/uL Neut % (Auto) 90.5 H (50-75) % Lymph % (Auto) 5.1 L (25-40) % Caroline % (Auto) 4.0 (3-14) % Eos % (Auto) 0.1 L (2-4) % Baso % (Auto) 0.3 (0-2) % Neut # (Auto) [address] H (0850-3530) /uL Lymph # (Auto) 600 L (3033-1358) /uL Caroline # (Auto) 500 (0-900) /uL Eos # (Auto) 0 (0-450) /uL Baso # (Auto) 0 (0-100) /uL PT 14.4 H (9.4-12.5) SECONDS INR 1.3 (0.9-1.3) APTT 37 H (25.1-36.5) SECONDS Sodium 140 (137-145) mmol/L Potassium 4.1 (3.4-5.1) mmol/L Chloride 105 (98-107) mmol/L Carbon Dioxide 21 L (22-32) mmol/L BUN 17 (9-20) mg/dL Creatinine 0.89 (0.66-1.25) mg/dL Estimated GFR > 60 (>60) mL/min BUN/Creatinine Ratio 19.1 (6-22) Glucose 158 H (80-110) mg/dL Calcium 8.8 (8.4-10.2) mg/dL Magnesium 2.1 (1.6-2.3) mg/dL Total Bilirubin 0.9 (0.2-1.3) mg/dL AST 33 (17-59) IU/L ALT 25 (<50) IU/L Alkaline Phosphatase 51 (38-126) U/L Total Creatine Kinase 71 (55-170) U/L Troponin I 0.023 0.037 H (0.01-0.034) ng/mL NT-Pro-B Natriuret Pep 1560 H (<450) pg/mL Total Protein 8.4 H (6.3-8.2) g/dL Albumin 4.7 (3.5-5.0) g/dL Globulin 3.7 (1.7-4.1) g/dL Albumin/Globulin Ratio 1.3 (1.0-2.8) Lipase 47 (23-300) U/L Imaging Data Chest x-ray: Radiologist's Impression: [address] [address] XRay Report Signed Patient: Guanaco Nelson MR#: [id number] : 1945 Acct:[id number] Age/Sex: 79 / M Date of Service: 09/02/24 Loc: ED Accession Number: [id number] Procedure: XR chest 1V Ordering Provider: Rachna Chacon D.O. PROCEDURE: XR CHEST 1V INDICATIONS: chest pain TECHNIQUE: One view of the chest was acquired. COMPARISON: [facility], CR, XR CHEST 1V, 02/11/2021, 16:22. [facility], CR, XR CHEST 1V, 02/01/2021, 17:12. FINDINGS: Surgical changes and devices: None. Lungs and pleura: Lungs are clear. No pleural effusions or pneumothorax. Mediastinum: Mediastinal contours appear normal. Heart size is normal. Bones and chest wall: No suspicious bony lesions. Overlying soft tissues appear unremarkable. IMPRESSION: No acute cardiopulmonary abnormality is seen. Dictated by: Esteban Hedrick M.D. on 09/02/2024 at 9:10 Approved by: Esteban Hedrick M.D. on 09/02/2024 at 9:11 ECG Data Attestation: I personally reviewed and interpreted this ECG as follows: Interpretation: EKG number shows sinus tachycardia although could be atrial flutter rate of 129 DE 124 QRS of 114 QTC of [address] elevation depression appreciated Repeat EKG shows atrial flutter with a variable AV block with a rate 83 QRS of 90 QTC of 437. EKG 3. Has a rate of 78 QRS 84 QTC of 462 appears to be more atrial fib than flutter on most recent EKG. [facility] Narrative Medical decision making narrative: Patient received IV metoprolol had improvement of right but appears to be in atrial flutter. Patient was anticoagulated. Patient appears to have prior attempted cardioversion with 3 shocks in 2020 was unsuccessful but was rate controlled with oral medication. On exam patient has a little bit erythema along the edge of his tragus. Slightly little bit of erythema just anterior to this is well. No obvious mass or fluid collection. Abdominal exam is benign he has not had any persistent nausea or vomiting heart rate improved after metoprolol. Labs show white count 11.6 hemoglobin of 16 platelets of 251. INR is 1.3 electrolytes show potassium of 4.1, Mag 2.1 sodium is appropriate chloride appropriate CO2 is 21 with a BUN 17 creatinine 0.89 glucose of 158 troponin 0.023 with a BNP of 1560 lipase of 47. Repeat troponin slightly trended upwards and 0.037 Chest x-ray shows no acute change. EKG shows tachycardia repeat EKG after metoprolol shows rates improved into the 80s but appears to be in atrial flutter. Patient had 30 EKG as it looked much more regular on tele is more atrial fib then flutter but still not sinus rhythm. Discussed with patient likely little bit dehydrated we will give a L of fluids, he had his morning medications including his apixaban, flecainide and metoprolol. Discussed with patient heart rate had improved into the 60s when he ambulates has a little bit fast but immediately returns back down. Patient prefers to return home we discussed cardioversion but he politely defers. Reviewed his troponins I suspect has a little bit more demand ischemia he was no chest pain at this time and feels much better. 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 Has a little bit of questionable cellulitis of the right tragus patient asked he can have a printed prescription and will fill if not improving. Discharge Plan Departure Patient Disposition: Home Clinical Impression: Atrial fibrillation and flutter, Cellulitis of tragus of right ear Instructions: DI for Arrhythmias Activity Restrictions/Additional Instructions: You appear to be intermittently in atrial fibrillation and atrial flutter today after he had a dose of metoprolol you have been more rate controlled but have not returned to a sinus rhythm. Please increase your metoprolol to 25 mg twice daily and talk with your cardiology team about if you need any other adjustments to medication. Can take oral antibiotic as prescribed for the area of potential infection on your anterior ear, a printed prescription is included in your paperwork. Please return for recurrent chest pain, elevated heart rate, lightheadedness or passing out, any persistent vomiting, new swelling of your extremities, shortness of breath or other new or concerning changes. Prescriptions: New sulfamethoxazole-trimethoprim [Bactrim DS] 800-160 mg tablet 1 tab PO BID Qty: 10 0RF No Action testosterone 5mg gel topical Jardiance 10 mg tablet 10 mg PO DAILY gabapentin 300 mg capsule 300 mg PO DAILY sertraline 50 mg tablet 50 mg PO DAILY Vitamin D3 1,000 units PO alirocumab 75 mg/mL pen injector 75 mg SUBCUT Q14D Qty: 2 0RF Eliquis 5 mg tablet 5 mg PO BID flecainide 50 mg tablet 50 mg PO Q12H Fiber PO Probiotics PO metoprolol succinate 25 mg tablet extended release 24 hr 25 mg PO DAILY Qty: 14 0RF Referrals: Miscellaneous,Doctor, MD [Primary Care Provider] - Stand Alone Forms: Patient Portal/API/Survey
[2024-09-02] MEDS: ONDANSETRON 4 MG/2 ML INJ IV (10:50)
[2024-09-02] MEDS: SODIUM CHLORIDE 0.9% 1,000 ML 1000 ML IV (10:50)
--- NOTE | 2024-09-02 10:58 | EKG_ITS ---
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
[2024-09-02 11:53] LABS: Troponin I 0.037 ng/mL (0.01-0.034)
== END 2024-09-02 12:55 | disposition home or self-care (01) ==
PROVIDERS: Emergency Provider Emergency Medicine; Family Provider Family Medicine
DX: I48.91 Unspecified atrial fibrillation (principal); I48.92 Unspecified atrial flutter; H60.11 Cellulitis of right external ear; Z79.01 Long term (current) use of anticoagulants; E11.9 Type 2 diabetes mellitus without complications; E78.5 Hyperlipidemia, unspecified; Z79.899 Other long term (current) drug therapy; R42 Dizziness and giddiness; R00.0 Tachycardia, unspecified
CPT/HCPCS: 36415; 71045; 80053; 82550; 83690; 83735; 83880; 84484; 85025; 85610; 85730; 93005; 96361; 96374; 96375; 99284; 99285; J2405

== ENCOUNTER 2024-09-13 15:23 | Emergency (ER) | payer MEDICARE, OTHER, SELFPAY ==
[2024-09-13 15:27] VITALS: BP 158/71; PULSE 79; RESP 16; TEMP 36.9; O2SAT 97; BMI 22.0
--- NOTE | 2024-09-13 15:34 | DI.RAD.S_ITS ---
PROCEDURE: XR HAND LT MIN 3V INDICATIONS: fall on ice, FOOSH, swelling to wrist/hand TECHNIQUE: 3 views of the hand(s) acquired. COMPARISON: None. FINDINGS: Bones: Postsurgical changes are noted in 3rd DIP joint with surgical hardware in place. Postsurgical changes also seen in 5th PIP joint. Osteoarthritic changes are noted throughout left hand and wrist joints with features suggestive of erosive osteoarthritis throughout interphalangeal joints. No acute fracture or dislocation. No suspicious bony lesions. Soft tissues: No suspicious soft tissue calcifications. IMPRESSION: Postsurgical changes in 3rd and 5th digits as above. No gross hardware loosening or failure. 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 No acute fracture or dislocation. No suspicious bony lesions. Dictated by: Armand Dexter M.D. on 09/13/2024 at 16:19 Approved by: Armand Dexter M.D. on 09/13/2024 at 16:30
--- NOTE | 2024-09-13 15:34 | DI.RAD.S_ITS ---
PROCEDURE: XR WRIST LT MIN 3V INDICATIONS: fall on ice, FOOSH, swelling to wrist/hand TECHNIQUE: 4 views of the wrist were acquired. COMPARISON: None. FINDINGS: Bones: No fractures or dislocations. Mild mild osteoarthritic changes are noted throughout wrist joints No suspicious bony lesions. Soft tissues: No suspicious soft tissue calcifications. IMPRESSION: No acute left wrist fracture or dislocation. Mild left wrist joint osteoarthritis. Dictated by: Armand Dexter M.D. on 09/13/2024 at 16:15 Approved by: Armand Dexter M.D. on 09/13/2024 at 16:15
--- NOTE | 2024-09-13 15:53 | ED_ITS ---
HPI - Fall <Regine June PA-C - Last Filed: 09/13/24 16:58> General Chief Complaint: Fall Stated Complaint: fell on ice, injured left wrist and left hip Time Seen by Provider: 09/13/24 15:50 History of Present Illness HPI Narrative: Mr. Nelson is a very pleasant 79-year-old male with a past medical history of AFib/a flutter on Eliquis, arthritis, osteopenia, hyperlipidemia, type 2 diabetes, memory loss presents to the emergency department for left wrist pain after a slip and fall on ice that occurred earlier today. Patient states while taking his trash can and he slipped on a patch of ice and landed on his buttocks and caught himself with his left hand. States that immediately after the injury he did not have any pain and he walked inside the house however as the day has gone on he is developed some soreness of the left hip and severe pain of the left wrist on the dorsal side. States that he has very significant underlying arthritis already of his joints especially his hands and wrists and he is left- hand dominant. States that he took 600 mg of gabapentin in the left wrist pain is now significantly improved however when he flexes and extends the wrist it is worse, no pain when he is holding the restraint. Reports some mild soreness of the left hip and the left elbow but no tenderness. He did not hit his head, has no neck or back pain or other pain. No difficulty with walking since the injury. His is with him in contributes to the history. Related Data Home Medications Medication Instructions Recorded Confirmed Fiber PO 04/27/21 02/02/24 Probiotics PO 04/27/21 02/02/24 apixaban 5 mg tablet (Eliquis) 5 mg PO BID 04/27/21 02/02/24 flecainide 50 mg tablet 50 mg PO Q12H 04/27/21 02/02/24 Vitamin D3 1,000 units PO 06/08/22 02/02/24 empagliflozin 10 mg tablet 10 mg PO DAILY 02/02/24 02/02/24 (Jardiance) gabapentin 300 mg capsule 300 mg PO DAILY 02/02/24 02/02/24 sertraline 50 mg tablet 50 mg PO DAILY 02/02/24 02/02/24 testosterone 5mg gel topical 02/02/24 02/02/24 Previous Rx's Medication Instructions Recorded metoprolol succinate 25 mg 25 mg PO DAILY #14 tabs 02/01/21 tablet,extended release 24 hr alirocumab 75 mg/mL subcutaneous 75 mg SUBCUT Q14D #2 mL 06/08/22 pen injector sulfamethoxazole 800 1 tab PO BID #10 tabs 09/02/24 mg-trimethoprim 160 mg tablet (Bactrim DS) sulfamethoxazole 800 1 tab PO BID #10 tabs 09/05/24 mg-trimethoprim 160 mg tablet (Bactrim DS) Allergies Allergy/AdvReac Type Severity Reaction Status Date / Time Penicillins Allergy Intermediate Hives Verified 02/02/24 09:05 metformin AdvReac Severe Extreme Verified 02/02/24 09:05 nausea [id number]-[id number] Reductase AdvReac Severe Memory Verified 02/02/24 09:05 Inhibitor loss, mood [Axojzid-Sca-Udm Reductase changes Inhibitor] Review of Systems <Regine June PA-C - Last Filed: 09/13/24 16:58> Review of Systems ROS Unobtainable: All systems reviewed & are unremarkable except as noted in HPI and below Patient History <Regine June PA-C - Last Filed: 09/13/24 16:58> Medical History Alteration in cognition Memory loss due to medical condition Lower urinary tract symptoms (LUTS) Hyperlipidemia Hx of concussion Arthritis Dyslexia Vision disorder Osteoarthritis Osteoporosis Osteopenia Foot pain Chicken pox Type 1 macular telangiectasis Tinnitus Hearing loss (~2019) Glaucoma (~2018) Low testosterone (~2007) Atrial fibrillation Surgical History Anesthesia History of vasectomy (~1989) History of repair of rotator cuff (~2004) History of hand surgery (~2004) Family History Father Diabetes mellitus History of heart disease Hyperlipidemia Hypertension Mental health problem Stroke Mother Mental health problem COPD (chronic obstructive pulmonary disease) History of emphysema Grandfather GI bleeding Grandfather Brain tumor Social History Smoking Status: Former smoker Smoking Status: Former smoker alcohol intake frequency: holidays/special occasions only Exam <AMBER Curtis Last Filed: 09/13/24 16:58> Narrative Exam Narrative: GENERAL: 79 year old patient appears stated age. Well-developed patient, in no acute distress. HEAD: Atraumatic. Normocephalic. NECK: Trachea midline. Cervical ROM intact. CARDIOVASCULAR: Regular rate and rhythm. Strong radial pulse bilaterally. RESPIRATORY: ?Nonlabored respirations. ?Speaking in clear, full sentences. EXTREMITIES: Tenderness to palpation of dorsal left wrist on the medial and lateral aspect, no obvious deformity, no snuffbox tenderness, there is also tenderness to palpation around the area of the 3rd and 4th metacarpals. Patient has arthritic fingers at baseline, he does have brisk capillary refill in the fingers and sensation intact to light touch. He is reluctant to flex or extend the left wrist or make a closed fist. No tenderness to palpation of left forearm, elbow, shoulder, bilateral lower extremities. No bruising or tende rness of left hip BACK: Nontender without deformity or crepitance. NEURO: AOx3. ?Clear speech. ?Moves all 4 extremities appropriately. SKIN: No rash or erythema of visible areas Initial Vital Signs Initial Vital Signs: Vital Signs Temperature 98.4 F 09/13/24 15:27 Pulse Rate 79 09/13/24 15:27 Respiratory Rate 16 09/13/24 15:27 Blood Pressure 158/71 H 09/13/24 15:27 Pulse Oximetry 97 09/13/24 15:27 Oxygen Delivery Method Room Air 09/13/24 15:27 <Kristy Kessler DO - Last Filed: 09/14/24 08:45> Initial Vital Signs Initial Vital Signs: Vital Signs Temperature 98.4 F 09/13/24 15:27 Pulse Rate 79 09/13/24 15:27 Respiratory Rate 16 09/13/24 15:27 Blood Pressure 158/71 H 09/13/24 15:27 Pulse Oximetry 97 09/13/24 15:27 Oxygen Delivery Method Room Air 09/13/24 15:27 Course <Regine June PA-C - Last Filed: 09/13/24 16:58> Orders Ordered: ED Orders 09/13/24 15:34 XR hand LT min 3V Stat XR wrist LT min 3V Stat Vital Signs Vital signs: Vital Signs - 8 hr 09/13/24 15:27 Temperature 98.4 F Pulse Rate 79 Respiratory Rate 16 Blood Pressure 158/71 H Pulse Oximetry 97 Oxygen Delivery Method Room Air <Kristy Kessler DO - Last Filed: 09/14/24 08:45> Orders Ordered: ED Orders 09/13/24 15:34 XR hand LT min 3V Stat XR wrist LT min 3V Stat Vital Signs Vital signs: Vital Signs - 8 hr 09/13/24 15:27 Temperature 98.4 F Pulse Rate 79 Respiratory Rate 16 Blood Pressure 158/71 H Pulse Oximetry 97 Oxygen Delivery Method Room Air MDM - Fall <Regine OlsonAMBER lyles - Last Filed: 09/13/24 16:58> Medical Records Attestation: I reviewed the patient's medical records. Imaging Data Left Hand and Left Wrist X-Ray: Radiologist's Impression: PROCEDURE: XR HAND LT MIN 3V INDICATIONS: fall on ice, FOOSH, swelling to wrist/hand TECHNIQUE: 3 views of the hand(s) acquired. COMPARISON: None. FINDINGS: Bones: Postsurgical changes are noted in 3rd DIP joint with surgical hardware in place. Postsurgical changes also seen in 5th PIP joint. Osteoarthritic changes are no martin throughout left hand and wrist joints with features suggestive of erosive osteoarthritis throughout interphalangeal joints. No acute fracture or dislocation. No suspicious bony lesions. Soft tissues: No suspicious soft tissue calcifications. IMPRESSION: Postsurgical changes in 3rd and 5th digits as above. No gross hardware loosening or failure. 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 No acute fracture or dislocation. No suspicious bony lesions. PROCEDURE: XR WRIST LT MIN 3V INDICATIONS: fall on ice, FOOSH, swelling to wrist/hand TECHNIQUE: 4 views of the wrist were acquired. COMPARISON: None. FINDINGS: Bones: No fractures or dislocations. Mild mild osteoarthritic changes are noted throughout wrist joints No suspicious bony lesions. Soft tissues: No suspicious soft tissue calcifications. IMPRESSION: No acute left wrist fracture or dislocation. Mild left wrist joint osteoarthritis. [facility] Narrative Medical decision making narrative: 79-year-old male with a past medical history of AFib/a flutter on Eliquis, arthritis, osteopenia, hyperlipidemia, type 2 diabetes, memory loss presents to the emergency department for left wrist pain after a slip and fall on ice that occurred earlier today. Differential diagnosis includes but is not limited to left wrist fracture, left hand fracture, left wrist sprain, hip contusion, etc. On exam patient is in no acute distress, nontoxic appearing, vital signs appropriate, regular heart rate. He is diffuse/generalized tenderness to palpation of the left wrist and hand, nonfocal, pain with range of motion of the left wrist. Left hand is neurovascularly intact. He does have significant underlying arthritis. He caught himself primarily with the left hand/wrist, did land on the left hip/buttocks however ambulating without difficulty, symptoms not consistent with a fracture of the hip. X-ray of the left hand and wrist were obtained in triage. Patient is on blood thinners however reports he was in sitting position when he fell and he did not hit his head or lose consciousness or have any trauma to the upper body. He declines need for pain medication at this time. X-ray wrist and hand reveal no acute fractures, there is chronic underlying arthritis. Images were printed and discussed with the patient. We will plan to left wrist Velcro splint for support. Recommended rice therapy, Tylenol for pain, follow up with Orthopedics if symptoms do not improve. Discussed strict ED return precautions. Patient is feeling much better with the splint on. He is agreeable to the plan and stable for discharge home. Discharge Plan Departure Patient Disposition: Home Clinical Impression: Fall from slipping on ice Qualifiers: Encounter type: initial encounter Qualified Code(s): W00.9XXA - Unspecified fall due to ice and snow, initial encounter Left wrist sprain Qualifiers: Encounter type: initial encounter Qualified Code(s): S63.502A - Unspecified sp rain of left wrist, initial encounter Contusion of hip, left Qualifiers: Encounter type: initial encounter Qualified Code(s): S70.02XA - Contusion of left hip, initial encounter Instructions: DI for Wrist Sprain Activity Restrictions/Additional Instructions: Dear Omar, Thank you for coming to the emergency department. Today you were evaluated after slipping and falling on ice. We obtain x-rays of your left wrist and hand which do not show any new fractures or break in any of the bones. Your symptoms are most consistent with a sprain of the left wrist. Please use the left wrist brace as needed for support. If your pain does not get better within the next week, I would like you to follow up with the orthopedic doctor for further evaluation. You can call to schedule an appointment with [facility] at [phone]. Please use RICE therapy for your pain in addition to acetaminophen. Rest the painful area. Ice the area of pain/swelling for at least 15 minutes, 4x a day. Compress the area of swelling using a brace, wrap, or splint if applied. Elevate the painful or swollen extremity by supporting it above the level of the heart with pillows when sitting or laying. Please follow up with your primary care doctor within the next 2-3 days for ER follow-up. (If you do not have a PCP you can call [phone]. ?to schedule an appointment with an [facility] Primary Care Provider) IF YOU DEVELOP ANY NEW OR WORSENING SYMPTOMS, RETURN TO THE ER! Please read the attached instructions, they highlight more specific treatments and interventions for you at home. Thank you for letting me participate in your care, Regine June PA-C Prescriptions: No Action testosterone 5mg gel topical Jardiance 10 mg tablet 10 mg PO DAILY gabapentin 300 mg capsule 300 mg PO DAILY sertraline 50 mg tablet 50 mg PO DAILY Vitamin D3 1,000 units PO alirocumab 75 mg/mL pen injector 75 mg SUBCUT Q14D Qty: 2 0RF Eliquis 5 mg tablet 5 mg PO BID flecainide 50 mg tablet 50 mg PO Q12H Fiber PO Probiotics PO sulfamethoxazole-trimethoprim [Bactrim DS] 800-160 mg tablet 1 tab PO BID Qty: 10 0RF sulfamethoxazole-trimethoprim [Bactrim DS] 800-160 mg tablet 1 tab PO BID Qty: 10 0RF metoprolol succinate 25 mg tablet extended release 24 hr 25 mg PO DAILY Qty: 14 0RF Referrals: Miscellaneous,Doctor, MD [Primary Care Provider] - Stand Alone Forms: Patient Portal/API/Survey ED Sign-out <Kristy Kessler DO - Last Filed: 09/14/24 08:45> Cosign ED Attending Pawel Attestation: I was available for consultation.
[2024-09-13 17:02] VITALS: BP 119/57; PULSE 67; RESP 16; O2SAT 96
== END 2024-09-13 17:03 | disposition home or self-care (01) ==
PROVIDERS: Emergency Provider Physician Assistant; Family Provider Family Medicine
DX: S63.502A Unspecified sprain of left wrist, initial encounter (principal); S70.02XA Contusion of left hip, initial encounter; W00.9XXA Unspecified fall due to ice and snow, initial encounter; Z79.01 Long term (current) use of anticoagulants
CPT/HCPCS: 73110; 73130; 99282; 99283